=== PATIENT | female | born 1995 | race Caucasian/White ===

== ENCOUNTER 2022-03-30 10:41 | Inpatient (IN) | payer BC ==
[2022-03-30] VITALS (24 sets, daily range): BP systolic 109–139; BP diastolic 55–86; PULSE 78–111; TEMP 97.9–98.6
[~2022-03-30] VITALS: Ht 165.1 cm; Wt 72.2 kg
[~2022-03-30 10:41] MED LIST: ADDERALL10 MG PO; TRINESSA 281 TAB PO
--- NOTE | 2022-03-30 11:15 | NUR ---
Dr. Gregg notified of patient here. Let her know that she was srom at 0515 this morning. Also let her know that she was dilated 2-3, 90% effaced, minus two.
[2022-03-30 11:41] LABS: BASO % 0.2 % (0.0-2.0); EOS # 0.1 K/mm3 (0.0-0.7); EOS % 0.4 % (0.0-4.0); GRAN # 9.5 K/mm3 (1.4-6.5); GRAN % 77.8 % (42.2-75.2); HEMATOCRIT 31.9 % (37.0-47.0); HEMOGLOBIN 10.9 g/dl (12.5-16.0); LYMPH # 1.1 K/mm3 (1.2-3.4); MEAN CELL VOLUME 86 fl (80.0-100.0); MEAN CORPUSCULAR HEMOGLOBIN 29 pg (27-31); MEAN CORPUSCULAR HGB CONC 34 g/dl (33.0-37.0); MEAN PLATELET VOLUME 11.5 fl (7.4-10.4); MONO # 1.4 K/mm3 (0.1-0.6); MONO % 11.8 % (1.7-9.3); PLATELET COUNT 117 K/mm3 (130-400); RED BLOOD COUNT 3.72 M/mm3 (4.10-5.30); REDCELL DISTRIBUTION WIDTH-CV 14.5 % (11.5-14.5)
--- NOTE | 2022-03-30 11:55 | NUR ---
Pen g 5000 million units iv given as ordered and per protocol.
--- NOTE | 2022-03-30 12:45 | NUR ---
Up on birthing ball by nurse Dubon.
--- NOTE | 2022-03-30 14:25 | NUR ---
Dr. Gregg here. Vag exam done, dilated to three, ninty percent effaced, minus one.
--- NOTE | 2022-03-30 15:25 | NUR ---
PT OFFERED TO GET UP AND WALK AND BE OFF THE EFM. SHE WOULD LIKE TO WALK OFF EFM AND UP TO WALK
--- NOTE | 2022-03-30 15:29 | NUR ---
PT TO UNIT STATES OM EAJUSTINY THIS AM TO LDR 5 AND EFM PLACED OREINT TO ROOM
--- NOTE | 2022-03-30 15:40 | NUR ---
CONTRACTIOSN ARE NOT TRACING AT THS TIME TOCO READJUSTED
--- NOTE | 2022-03-30 15:41 | NUR ---
UP TO VOID
--- NOTE | 2022-03-30 16:02 | NUR ---
EFM PLACED PEN G DOSE
[2022-03-31] VITALS (25 sets, daily range): BP systolic 102–136; BP diastolic 54–78; PULSE 96–125; TEMP 97.5–98.8
--- NOTE | 2022-03-31 05:00 | NUR ---
VAG DELILVERY MALE BY DR CASTELLON.
--- NOTE | 2022-03-31 05:04 | NUR ---
PLACENTA DLEIVERED SPONTANEOUS, INTACT. PITOCIN BOLUS STARTED AT 333 ML. HR VIA PUMP.
--- NOTE | 2022-03-31 18:40 | NUR ---
Report recieved. Resting in room. POC reviewed and whiteboard updated.
[2022-04-01 08:30] VITALS: BP 109/62; PULSE 103; TEMP 97.6
[2022-04-01 10:59] LABS: MEAN CELL VOLUME 89 fl (80.0-100.0); MEAN CORPUSCULAR HGB CONC 33 g/dl (33.0-37.0); MEAN PLATELET VOLUME 11.6 fl (7.4-10.4); PLATELET COUNT 108 K/mm3 (130-400); RED BLOOD COUNT 3.24 M/mm3 (4.10-5.30); REDCELL DISTRIBUTION WIDTH-CV 14.6 % (11.5-14.5)
[2022-04-01 11:03] LABS: HEMATOCRIT 28.7 % (37.0-47.0); HEMOGLOBIN 9.6 g/dl (12.5-16.0); MEAN CORPUSCULAR HEMOGLOBIN 30 pg (27-31)
[2022-04-01] MEDS ORDERED: IBU600 MG PO (11:13)
[2022-04-01 16:30] VITALS: BP 132/78; PULSE 100; TEMP 98.3
--- NOTE | 2022-04-01 18:30 | NUR ---
Report recieved. Resting in bed. Updated whiteboard and reviewed POC. Questions invited and answered.
[2022-04-01 20:00] VITALS: BP 128/79; PULSE 100; TEMP 97.6
[2022-04-02 07:30] VITALS: BP 119/86; PULSE 94; TEMP 98.1
--- NOTE | 2022-04-02 07:50 | NUR ---
0745DISCHARGE DVDS BROUGHT TO PATIENT'S ROOM. PATIENT AND SIGNFICIANT OTHER WATCHING
[2022-04-02] MEDS ORDERED: BREASTPUMP MC (11:37)
--- NOTE | 2022-04-02 13:31 | NUR ---
1320DISCHARGE INSTRUCTIONS REVIEWED WITH PATIENT AND PATIENT'S SIGNIFICANT OTHER. ALL QUESTIONS ANSWERED. WILL NOTIFY NURSING STAFF WHEN READY TO LEAVE.
--- NOTE | 2022-04-02 14:47 | NUR ---
1420ALL PERSONAL BELONGINGS GATHERE FROM PATIENT ROOM. PATIENT LEFT AMBULATORY AND IN NO APPARENT DISTRESS. PATIENT ACCOMPANIED BY SIGNFICIANT OTHER AND IN NO APPARENT DISTRESS.
== END 2022-04-02 14:20 | disposition home or self-care (01) | DRG 806 ==
LOC: LDRO 10:41 → LDR 11:15 → OB 11:15
PROVIDERS: ADMIT Student in an Organized Health Care Education/Training Program
PROC: 10E0XZZ Delivery of Products of Conception, External Approach (ICD-10-PCS; principal; 2022-03-31)
PROC: 3E033VJ Introduction of Other Hormone into Peripheral Vein, Percutaneous Approach (ICD-10-PCS; 2022-03-31)
DX: O99.344 Other mental disorders complicating childbirth (principal); O99.12 Other diseases of the blood and blood-forming organs and certain disorders involving the immune mechanism complicating childbirth; Z37.0 Single live birth; O99.824 Streptococcus B carrier state complicating childbirth; D69.59 Other secondary thrombocytopenia; F41.3 Other mixed anxiety disorders; F32.A Depression, unspecified; O76 Abnormality in fetal heart rate and rhythm complicating labor and delivery; O26.893 Other specified pregnancy related conditions, third trimester; Z67.41 Type O blood, Rh negative; Z3A.37 37 weeks gestation of pregnancy
CPT/HCPCS: J2540; J2590; J7120

== ENCOUNTER → 2022-04-17 | Outpatient (CLI) | payer BC ==
[~2022-04-17] MED LIST changes: +BREASTPUMP MC; +IBU600 MG PO
== END ==
LOC: LAC 14:27
DX: Z39.1 Encounter for care and examination of lactating mother (principal)